=== PATIENT | female | born 1955 | race Caucasian/White ===

== ENCOUNTER 2023-04-27 08:38 | Observation (INO) | payer MEDICARE ==
[2023-04-27 09:14] LABS: #Monocytes 0.7 10x3/uL (0.0-1.1); #Neutrophils 8.1 10x3/uL (1.5-8.4); %Basophils 0.4 % (0.0-2.0); %Eosinophils 0.4 % (0.0-6.0); %Lymphocytes 12.3 % (18.0-47.0); %Monocytes 6.6 % (0.0-10.0); %Neutrophils 79.9 % (40.0-75.0); Hematocrit 40.9 % (34.9-44.5); Hemoglobin 14.1 g/dL (12.0-15.5); Mean Corpuscular HGB CONC 34.5 g/dL (32.0-36.0); Mean Corpuscular Hemoglobin 31.4 pg (27.0-33.0); Mean Corpuscular Volume 91.1 fl (81.6-98.3); Mean Platelet Volume 10.3 fl (7.4-10.4); Platelet Count 324 10x3/uL (150-450); RBC Distribution Width 14.4 % (11.5-14.5); Red Blood Cell (RBC) Count 4.49 10x6/uL (3.90-5.03); White Blood Cell (WBC) Count 10.2 10x3/uL (3.5-10.5)
[2023-04-27] MEDS ORDERED: Morphine 4 MG/ML VIAL ONE (09:26)
[2023-04-27] MEDS ORDERED: Ondansetron PF 4 MG/2 ML Vial ONE ×2 (09:26→14:23)
[2023-04-27 09:34] LABS: ALT (SGPT) 28 U/L (8-55); AST (SGOT) 32 U/L (5-34); Albumin 4.1 g/dL (3.4-4.8); Alkaline Phosphatase 77 U/L (40-110); Anion Gap 16 mmol/L (10-20); BUN (Urea Nitrogen) 30 mg/dL (9.8-20.1); Bilirubin, Total 0.8 mg/dL (0.2-1.2); Calc. Creatinine Clearance 0 mL/min (70-130); Calcium 10.1 mg/dL (7.8-10.44); Carbon Dioxide 25 mmol/L (23-31); Chloride 104 mmol/L (98-107); Estimated GFR 48; Globulin 2.6 g/dL (2.4-3.5); Glucose 124 mg/dL (80-115); Lipase 4 U/L (8-78); Protein, Total 6.7 g/dL (5.8-8.1); Sodium 141 mmol/L (136-145)
[2023-04-27] MEDS ORDERED: Lorazepam 2 MG/ML VIAL ONE (09:34)
[2023-04-27 09:39] LABS: Troponin I Less than 0.010 ng/mL (< 0.028)
[2023-04-27] MEDS ORDERED: fentaNYL 50 mcg/mL 1 mL Vial ONE ×2 (10:28→14:24)
[2023-04-27] MEDS ORDERED: Iopamidol 300 61% 100 ML VIAL FS ONE (11:44)
[2023-04-27] MEDS ORDERED: Morphine 2 MG/ML VIAL SLOW IVP PRN (11:58)
[2023-04-27] MEDS ORDERED: Promethazine HCl 25 MG/ML VIAL IM PRN (11:58)
[2023-04-27] MEDS ORDERED: hydrALAZINE 20 MG/ML VIAL SLOW IVP PRN (11:58)
[2023-04-27] MEDS ORDERED: Ipratropium/Albuterol 3 ML NEB NEB PRN (11:58)
[2023-04-27] MEDS ORDERED: HYDROcodone/Acetaminophen 10/325 mg Tablet PO PRN (11:58)
[2023-04-27] MEDS ORDERED: Calcium Carbonate 500 MG ChewTAB PO PRN (11:58)
[2023-04-27] MEDS ORDERED: Mag-Al 1200 mg/1200 mg/30 ML UDCUP PO PRN (11:58)
[2023-04-27] MEDS ORDERED: Dextrose 5% in Water 1,000 ML IV PRN (11:58)
[2023-04-27] MEDS ORDERED: Ondansetron PF 4 MG/2 ML Vial IVP PRN (11:58)
[2023-04-27] MEDS ORDERED: Glucagon 1 MG/ML KIT IM PRN (11:58)
[2023-04-27] MEDS ORDERED: Dextrose 50% Abboject 50 ML SYRINGE SLOW IVP PRN (11:58)
[2023-04-27] MEDS ORDERED: EPINEPHrine 1 MG/ML VIAL ONE (14:13)
[2023-04-27] MEDS ORDERED: Bupivacaine 0.25% HCL 30 ML VIAL ONE (14:13)
[2023-04-27] MEDS ORDERED: ceFOXitin 1 GM VIAL ONE (14:21)
[2023-04-27] MEDS ORDERED: Rocuronium Bromide 10 MG/ML (10ML VIAL) ONE (14:23)
[2023-04-27] MEDS ORDERED: Dexamethasone 20 MG/5 ML VIAL ONE (14:23)
[2023-04-27] MEDS ORDERED: PROPOFOL 20 ML ONE (14:23)
[2023-04-27] MEDS ORDERED: Lidocaine 1% PF 5 ML VIAL ONE (14:23)
[2023-04-27] MEDS ORDERED: Glycopyrrolate 0.2 MG/ML 5 ML SYRINGE ONE (14:53)
[2023-04-27] MEDS ORDERED: ePHEDrine Sulfate 50 MG/10 ML VIAL ONE (14:54)
[2023-04-27] MEDS ORDERED: PHENYLEPHRINE-NS 100 MCG/ML 10 ML SYRINGE ONE (15:10)
[2023-04-27] MEDS ORDERED: Metoclopramide HCl 10 MG (2 mL) VIAL ONE (15:28)
[2023-04-27] MEDS: Ketorolac Tromethamine 30 MG (1 mL) VIAL IVP SCH (17:53)
[2023-04-27] MEDS: D5 1/2 NS w/20 mEq KCL 1,000 ML IV SCH (17:53)
[2023-04-27 19:28] VITALS: BMI 19.2
[2023-04-27] MEDS: Famotidine/PF 20 mg/2ml Vial SLOW IVP SCH (22:08)
[2023-04-27] MEDS: Escitalopram Oxalate 20 mg Tablet PO SCH (23:45)
[2023-04-27] MEDS: QUEtiapine 25 MG TAB PO SCH (23:45)
[2023-04-28] MEDS: Lorazepam 0.5 MG TAB PO SCH (00:07)
[2023-04-28] MEDS: Enoxaparin 40 MG (0.4 mL) SYRINGE SC SCH (10:21)
[2023-04-28 13:24] VITALS: TEMP 98.1
[2023-04-28 16:18] VITALS: BP 103/62
[2023-04-28] MEDS ORDERED: QUEtiapine 25 MG TAB PO SCH (21:00)
[2023-04-28] MEDS ORDERED: Escitalopram Oxalate 20 mg Tablet PO SCH (21:00)
[2023-04-28] MEDS ORDERED: Famotidine/PF 20 mg/2ml Vial SLOW IVP SCH (21:00)
[2023-04-28] MEDS ORDERED: Lorazepam 0.5 MG TAB PO SCH (21:00)
== END 2023-04-28 20:45 | disposition home or self-care (01) ==
LOC: CSHERS 08:38 → CSHTELE 12:09
PROVIDERS: ADMIT Surgery; ATTEND Surgery
PROC: 0DB84ZZ Excision of Small Intestine, Percutaneous Endoscopic Approach (ICD-10-PCS; principal; 2023-04-27)
PROC: 0YU54JZ Supplement Right Inguinal Region with Synthetic Substitute, Percutaneous Endoscopic Approach (ICD-10-PCS; 2023-04-27)
DX: K40.30 Unilateral inguinal hernia, with obstruction, without gangrene, not specified as recurrent (principal); K55.019 Acute (reversible) ischemia of small intestine, extent unspecified; F41.9 Anxiety disorder, unspecified; J44.9 Chronic obstructive pulmonary disease, unspecified; Z90.710 Acquired absence of both cervix and uterus; Z79.899 Other long term (current) drug therapy
CPT/HCPCS: 44202; 49650; 71045; 74177; 80053; 83605; 83690; 84484; 85025; 93005; 94760 ×2; 96361; 96372; 96374; 96375 ×2; 96376; 99285; C1781; G0378 ×3; J0171; J3010; 88307; J0665; J0694; J1100; J1650; J1885; J2060; J2270; J2405; J2704; J2765; J3480; Q9967; S0028

== ENCOUNTER 2023-05-10 18:45 | Inpatient (IN) | payer MEDICARE ==
[2023-05-10 19:39] LABS: #Basophils 0.05 10x3/uL (0.0-0.2); #Eosinphils 0.22 10x3/uL (0.0-0.5); #Monocytes 0.44 10x3/uL (0.0-1.1); #Neutrophils 3.09 10x3/uL (1.5-8.4); %Basophils 0.8 % (0.0-2.0); %Eosinophils 3.4 % (0.0-6.0); %Lymphocytes 40.3 % (18.0-47.0); %Monocytes 6.9 % (0.0-10.0); %Neutrophils 48.4 % (40.0-75.0); Hematocrit 37.6 % (34.9-44.5); Hemoglobin 12.7 g/dL (12.0-15.5); Mean Corpuscular HGB CONC 33.8 g/dL (32.0-36.0); Mean Corpuscular Hemoglobin 31.1 pg (27.0-33.0); Mean Corpuscular Volume 92.2 fl (81.6-98.3); Mean Platelet Volume 9.1 fl (7.4-10.4); Platelet Count 393 10x3/uL (150-450); RBC Distribution Width 14.1 % (11.5-14.5); Red Blood Cell (RBC) Count 4.08 10x6/uL (3.90-5.03); White Blood Cell (WBC) Count 6.4 10x3/uL (3.5-10.5)
[2023-05-10 19:57] LABS: ALT (SGPT) 12 U/L (8-55); AST (SGOT) 21 U/L (5-34); Albumin 3.4 g/dL (3.4-4.8); Alkaline Phosphatase 74 U/L (40-110); Anion Gap 13 mmol/L (10-20); BUN (Urea Nitrogen) 15 mg/dL (9.8-20.1); Bilirubin, Total 0.5 mg/dL (0.2-1.2); Calc. Creatinine Clearance 0 mL/min (70-130); Carbon Dioxide 26 mmol/L (23-31); Chloride 106 mmol/L (98-107); Estimated GFR 80; Globulin 2.3 g/dL (2.4-3.5); Glucose 71 mg/dL (80-115); Lipase 7 U/L (8-78); Magnesium 2.3 mg/dL (1.6-2.6); Protein, Total 5.7 g/dL (5.8-8.1); Sodium 141 mmol/L (136-145)
[2023-05-10 19:59] LABS: Troponin I Less than 0.010 ng/mL (< 0.028)
[2023-05-10] MEDS ORDERED: Lorazepam 2 MG/ML VIAL ONE (21:12)
[2023-05-10 21:23] LABS: Bilirubin Neg (Negative); Blood, Urine Negative (Negative); Clarity Clear (Clear); Glucose, Urine (Dipstick) Normal (Negative); Ketone, Urine 15 mg/dL (Negative); Leukocyte Negative (Negative); Nitrite Negative (Negative); Protein, Urine (Dipstick) Negative (Neg-Trace)
[2023-05-10 21:29] LABS: Bacteria/HPF None Seen HPF (None Seen); CAUTI Indications for Culture Alt mental st,lethar; RBC/HPF None Seen HPF (0-3); Squamous Epithelial 0-3 HPF (0-3); Urine Culture Reflex No No; WBC/HPF None Seen HPF (0-3)
[2023-05-10] MEDS ORDERED: Haloperidol Lactate 5 MG/ML VIAL ONE (22:10)
[2023-05-10] MEDS ORDERED: D5 1/2 NS w/20 mEq KCL 1,000 ML ONE (22:33)
[2023-05-11] MEDS ORDERED: Calcium Carbonate 500 MG ChewTAB PO PRN (00:06)
[2023-05-11] MEDS ORDERED: Senokot S 8.6-50 MG TAB PO PRN (00:06)
[2023-05-11] MEDS ORDERED: Ondansetron PF 4 MG/2 ML Vial IVP PRN (00:06)
[2023-05-11] MEDS ORDERED: clonazePAM 0.5 MG TAB PO PRN (00:17)
[2023-05-11 02:05] VITALS: BMI 19.5
[2023-05-11] MEDS: D5 1/2 NS w/20 mEq KCL 1,000 ML IV SCH (02:21)
[2023-05-11] MEDS: Dextrose 50% Abboject 50 ML SYRINGE SLOW IVP SCH (02:21)
[2023-05-11] MEDS: Dextrose 5%-Lactated Ringers 1,000 ML IV SCH (02:27)
[2023-05-11 04:35] LABS: Anion Gap 15 mmol/L (10-20); BUN (Urea Nitrogen) 14 mg/dL (9.8-20.1); CK (CPK) 64 U/L (29-168); Calc. Creatinine Clearance 61 mL/min (70-130); Calcium 9.2 mg/dL (7.8-10.44); Carbon Dioxide 24 mmol/L (23-31); Chloride 107 mmol/L (98-107); Estimated GFR 78; Glucose 104 mg/dL (80-115); Potassium 3.7 mmol/L (3.5-5.1); Sodium 142 mmol/L (136-145)
[2023-05-11 04:55] LABS: Syphilis Antibody Nonreactive (Nonreactive)
[2023-05-11 04:56] LABS: HIV (1/2) Antibody/Antigen Non-Reactive (NonReactive); HIV 1/2 INDEX 0.07 S/CO (<1.00)
[2023-05-11] MEDS ORDERED: Escitalopram Oxalate 10 mg Tablet PO SCH (09:00)
[2023-05-11 13:03] LABS: Amphetamine Not Detected (NotDetected); Barbiturates Screen Not Detected (NotDetected); Benzodiazepine Screen Detected (NotDetected); Cocaine Metabolite Screen Not Detected (NotDetected); Methadone Not Detected (NotDetected); Methamphetamine Not Detected (NotDetected); Opiate Screen Not Detected (NotDetected); Oxycodone Screen Not Detected (NotDetected); Phencyclidine (PCP) Not Detected (NotDetected); THC/Cannabinoid Screen Not Detected (NotDetected); Tricyclic Screen Not Detected (NotDetected)
[2023-05-11] MEDS: clonazePAM 0.5 MG TAB PO SCH (15:01)
[2023-05-11] MEDS: Enoxaparin 40 MG (0.4 mL) SYRINGE SC SCH (15:01)
[2023-05-11] MEDS: Divalproex Sodium 250 MG (DR) TAB PO SCH (15:01)
[2023-05-11] MEDS: Famotidine/PF 20 mg/2ml Vial SLOW IVP SCH (15:02)
[2023-05-11] MEDS: Escitalopram Oxalate 20 mg Tablet PO SCH (15:02)
[2023-05-11] MEDS: risperiDONE 0.5 MG TAB PO SCH (15:02)
[2023-05-11] MEDS ORDERED: Dextrose 5% in Water 1,000 ML IV PRN (20:45)
[2023-05-11] MEDS ORDERED: Dextrose 50% Abboject 50 ML SYRINGE SLOW IVP PRN (20:45)
[2023-05-11] MEDS ORDERED: Glucagon 1 MG/ML KIT IM PRN (20:45)
[2023-05-11] MEDS: Acetaminophen 325 MG TAB PO PRN (21:56)
[2023-05-11] MEDS: Divalproex Sodium 125 mg Sprinkle Capsule PO SCH (21:57)
[2023-05-12] MEDS ORDERED: Divalproex Sodium 250 MG ER.TAB PO SCH (21:00)
[2023-05-12] MEDS: Divalproex Sodium 250 MG (DR) TAB PO SCH (22:00)
[2023-05-13] MEDS: clonazePAM 0.5 MG TAB PO PRN (22:03)
[2023-05-15 06:35] VITALS: TEMP 97.6
[2023-05-15 10:31] VITALS: BP 104/61
== END 2023-05-15 10:54 | DRG 884 ==
LOC: CSHERS 18:45 → INTOOBSV 05-11 02:01 → CSHTELE 05-11 02:01 → OBSVTOIN 05-12 11:47
PROVIDERS: ADMIT Student in an Organized Health Care Education/Training Program; ATTEND Internal Medicine
PROC: 4A00X4Z Measurement of Central Nervous Electrical Activity, External Approach (ICD-10-PCS; principal; 2023-05-11)
DX: F03.90 Unspecified dementia, unspecified severity, without behavioral disturbance, psychotic disturbance, mood disturbance, and anxiety (principal); G93.41 Metabolic encephalopathy; F23 Brief psychotic disorder; G31.89 Other specified degenerative diseases of nervous system; F32.A Depression, unspecified; F41.9 Anxiety disorder, unspecified; E16.2 Hypoglycemia, unspecified; N18.2 Chronic kidney disease, stage 2 (mild); R53.81 Other malaise; Z79.899 Other long term (current) drug therapy; Z87.891 Personal history of nicotine dependence; Z90.710 Acquired absence of both cervix and uterus
CPT/HCPCS: 36415; 36416; 51701; 70450; 70551; 80048; 80053; 80306; 81001; 82550; 82607; 82672; 83605; 83690; 83735; 84443; 84484; 85025; 86780; 87389; 93005; 95816; 95819; 96361; 96372; 96374; 96375; 96376; G0378; J1630; J1650; J2060; J3480; S0028

== ENCOUNTER 2023-08-16 15:03 | Emergency (ER) | payer MEDICARE, OTHER | END 2023-08-16 18:40 | disposition home or self-care (01) | LOC: CSHERS 15:03 | DX: R42 Dizziness and giddiness (principal); N39.0 Urinary tract infection, site not specified | CPT/HCPCS: 70450; 71045; 80053; 81001; 84484; 85025; 87086; 93005; J0696; 96374 ==

== ENCOUNTER 2023-09-07 15:04 | Emergency (ER) | payer MEDICARE, OTHER ==
[2023-09-07 17:08] LABS: #Basophils 0.03 10x3/uL (0.0-0.2); #Eosinphils 0.07 10x3/uL (0.0-0.5); #Monocytes 0.35 10x3/uL (0.0-1.1); #Neutrophils 1.82 10x3/uL (1.5-8.4); %Basophils 0.7 % (0.0-2.0); %Eosinophils 1.5 % (0.0-6.0); %Lymphocytes 50.2 % (18.0-47.0); %Monocytes 7.7 % (0.0-10.0); %Neutrophils 39.9 % (40.0-75.0); Hematocrit 41.5 % (34.9-44.5); Mean Corpuscular HGB CONC 33.7 g/dL (32.0-36.0); Mean Corpuscular Hemoglobin 32.5 pg (27.0-33.0); Mean Corpuscular Volume 96.3 fL (81.6-98.3); Mean Platelet Volume 10.6 fL (7.4-10.4); Platelet Count 206 10x3/uL (150-450); RBC Distribution Width 13.1 % (11.5-14.5); Red Blood Cell (RBC) Count 4.31 10x6/uL (3.90-5.03); White Blood Cell (WBC) Count 4.6 10x3/uL (3.5-10.5)
[2023-09-07 17:26] LABS: ALT (SGPT) 15 U/L (8-55); AST (SGOT) 21 U/L (5-34); Albumin 3.5 g/dL (3.4-4.8); Alkaline Phosphatase 54 U/L (40-110); Anion Gap 12 mmol/L (10-20); BUN (Urea Nitrogen) 27 mg/dL (9.8-20.1); Bilirubin, Total 0.3 mg/dL (0.2-1.2); Calc. Creatinine Clearance 0 mL/min (70-130); Calcium 9.9 mg/dL (7.8-10.44); Carbon Dioxide 28 mmol/L (23-31); Chloride 104 mmol/L (98-107); Estimated GFR 67; Glucose 99 mg/dL (80-115); Protein, Total 6.5 g/dL (5.8-8.1); Sodium 140 mmol/L (136-145)
[2023-09-07 17:27] LABS: Bilirubin Neg (Negative); Blood, Urine 10 (Negative); Clarity Clear (Clear); Glucose, Urine (Dipstick) Normal (Negative); Ketone, Urine Negative (Negative); Leukocyte 500 (Negative); Nitrite Negative (Negative); Protein, Urine (Dipstick) 15 mg/dl (Neg-Trace); Urobilinogen Normal mg/dL (Less than 2)
[2023-09-07 17:46] LABS: Bacteria/HPF 2+ HPF (None Seen); CAUTI Indications for Culture Alt mental st,lethar; Mucous/LPF 1+ LPF (<2+); RBC/HPF 0-3 HPF (0-3); Squamous Epithelial 0-3 HPF (0-3); Transitional Epithelial 0-3 HPF (None Seen); Urine Culture Reflex Yes Yes; WBC/HPF 21-50 HPF (0-3)
[2023-09-07] MEDS ORDERED: cefTRIAXone (ROCEPHIN) 2 GM VIAL ONE (18:03)
== END 2023-09-07 19:22 | disposition home or self-care (01) ==
LOC: CSHERS 15:04
DX: R53.1 Weakness (principal)
CPT/HCPCS: 72072; 72100; 80053; 81001; 83735; 85025; 87086; 93005; J0696; 96374

== ENCOUNTER 2023-11-04 12:45 | Inpatient (IN) | payer MEDICARE, OTHER ==
[~2023-11-04 12:45] MED LIST: Iopamidol 300 61% 100 ML VIAL FS ONE
[2023-11-04] MEDS ORDERED: Acetaminophen 500 MG TAB ONE (14:58)
[2023-11-04] MEDS ORDERED: Lidocaine 4% Patch ONE (15:45)
[2023-11-04 16:08] LABS: #Basophils 0.03 10x3/uL (0.0-0.2); #Eosinphils 0.24 10x3/uL (0.0-0.5); #Monocytes 0.57 10x3/uL (0.0-1.1); %Basophils 0.6 % (0.0-2.0); %Eosinophils 4.7 % (0.0-6.0); %Lymphocytes 47.9 % (18.0-47.0); %Monocytes 11.2 % (0.0-10.0); %Neutrophils 35.4 % (40.0-75.0); Hematocrit 30.6 % (34.9-44.5); Hemoglobin 10.1 g/dL (12.0-15.5); Mean Corpuscular Hemoglobin 31.9 pg (27.0-33.0); Mean Corpuscular Volume 96.5 fL (81.6-98.3); Mean Platelet Volume 9.3 fL (7.4-10.4); Platelet Count 257 10x3/uL (150-450); RBC Distribution Width 14.4 % (11.5-14.5); Red Blood Cell (RBC) Count 3.17 10x6/uL (3.90-5.03); White Blood Cell (WBC) Count 5.1 10x3/uL (3.5-10.5)
[2023-11-04 16:25] LABS: Anion Gap 11 mmol/L (10-20); BUN (Urea Nitrogen) 23 mg/dL (9.8-20.1); Calc. Creatinine Clearance 0 mL/min (70-130); Calcium 9.5 mg/dL (7.8-10.44); Carbon Dioxide 26 mmol/L (23-31); Chloride 108 mmol/L (98-107); Estimated GFR 66; Glucose 84 mg/dL (80-115); PTT 26.5 sec (22.0-33.0); Potassium 4.2 mmol/L (3.5-5.1); Prothrombin Time 10.9 sec (9.5-12.1); Sodium 141 mmol/L (136-145)
[2023-11-04] MEDS ORDERED: clonazePAM 0.5 MG TAB ONE ×3 (16:35→22:26)
[2023-11-04 20:19] LABS: Bilirubin Neg (Negative); Blood, Urine Negative (Negative); Clarity Clear (Clear); Glucose, Urine (Dipstick) Normal (Negative); Ketone, Urine Negative (Negative); Leukocyte Negative (Negative); Nitrite Positive (Negative); Protein, Urine (Dipstick) 15 mg/dl (Neg-Trace)
[2023-11-04] MEDS ORDERED: Mineral Oil ENEMA ONE (20:21)
[2023-11-04 20:27] LABS: CAUTI Indications for Culture Alt mental st,lethar; RBC/HPF 0-3 HPF (0-3); Squamous Epithelial None Seen HPF (0-3); WBC/HPF 0-3 HPF (0-3)
[2023-11-04 20:28] LABS: Bacteria/HPF Rare-Few HPF (None Seen)
[2023-11-04 20:29] LABS: Urine Culture Reflex No No
[2023-11-04] MEDS ORDERED: Calcium Carbonate 500 MG ChewTAB PO PRN (20:37)
[2023-11-04] MEDS ORDERED: Guaifenesin DM 100-10/5 ML UDCUP PO PRN (20:37)
[2023-11-04] MEDS ORDERED: Ondansetron PF 4 MG/2 ML Vial IVP PRN (20:37)
[2023-11-04] MEDS ORDERED: Bisacodyl 10 MG SUPP PR PRN (20:43)
[2023-11-04] MEDS ORDERED: QUEtiapine 25 MG TAB ONE (22:25)
[2023-11-04] MEDS ORDERED: traZODone HCl 50 MG TAB ONE (22:25)
[2023-11-04 23:03] VITALS: BMI 18.8
[2023-11-04] MEDS: clonazePAM 0.5 MG TAB PO PRN (23:04)
[2023-11-04] MEDS: QUEtiapine 25 MG TAB PO SCH (23:04)
[2023-11-04] MEDS: traZODone HCl 50 MG TAB PO SCH (23:04)
[2023-11-04] MEDS ORDERED: cefTRIAXone (ROCEPHIN) 1 GM VIAL ONE (23:17)
[2023-11-04] MEDS ORDERED: Divalproex Sodium 250 MG (DR) TAB ONE (23:17)
[2023-11-04] MEDS: Divalproex Sodium 250 MG (DR) TAB PO SCH (23:30)
[2023-11-04] MEDS: cefTRIAXone\\ROCEPHIN 1 GM in Sodium Chloride 0.9% 100 ML IVPB SCH (23:31)
[2023-11-04] MEDS: Senokot S 8.6-50 MG TAB PO SCH (23:36)
[2023-11-04] MEDS: Lactulose 20 GM (30 mL) UDCUP PO SCH (23:36)
[2023-11-04] MEDS: Bisacodyl 10 MG SUPP PR SCH (23:36)
[2023-11-05] MEDS: Lactated Ringer's 1,000 ML IV SCH (00:01)
[2023-11-05] MEDS ORDERED: traMADol HCl 50 MG TAB ONE (02:27)
[2023-11-05] MEDS ORDERED: Acetaminophen 325 MG TAB ONE (02:27)
[2023-11-05] MEDS: traMADol HCl 50 MG TAB PO PRN (02:36)
[2023-11-05] MEDS: Acetaminophen 650 MG Suppository PR PRN (02:36)
[2023-11-05] MEDS ORDERED: Sterile Water 10 ML ONE (03:12)
[2023-11-05] MEDS ORDERED: Ziprasidone 20 MG VIAL ONE (03:12)
[2023-11-05 04:33] LABS: #Basophils 0.03 10x3/uL (0.0-0.2); #Eosinphils 0.25 10x3/uL (0.0-0.5); #Monocytes 0.55 10x3/uL (0.0-1.1); #Neutrophils 1.82 10x3/uL (1.5-8.4); %Basophils 0.7 % (0.0-2.0); %Eosinophils 5.6 % (0.0-6.0); %Lymphocytes 40.1 % (18.0-47.0); %Monocytes 12.4 % (0.0-10.0); Hematocrit 33.8 % (34.9-44.5); Hemoglobin 11.4 g/dL (12.0-15.5); Mean Corpuscular HGB CONC 33.7 g/dL (32.0-36.0); Mean Corpuscular Hemoglobin 32.7 pg (27.0-33.0); Mean Corpuscular Volume 96.8 fL (81.6-98.3); Mean Platelet Volume 9.5 fL (7.4-10.4); Platelet Count 275 10x3/uL (150-450); RBC Distribution Width 14.3 % (11.5-14.5); Red Blood Cell (RBC) Count 3.49 10x6/uL (3.90-5.03); White Blood Cell (WBC) Count 4.4 10x3/uL (3.5-10.5)
[2023-11-05 04:37] LABS: Anion Gap 16 mmol/L (10-20); BUN (Urea Nitrogen) 17 mg/dL (9.8-20.1); Calc. Creatinine Clearance 55 mL/min (70-130); Calcium 8.9 mg/dL (7.8-10.44); Carbon Dioxide 19 mmol/L (23-31); Chloride 109 mmol/L (98-107); Estimated GFR 74; Glucose 73 mg/dL (80-115); Potassium 4.3 mmol/L (3.5-5.1); Sodium 140 mmol/L (136-145)
[2023-11-05] MEDS ORDERED: Pantoprazole DR 40 MG TAB ONE (07:39)
[2023-11-05] MEDS ORDERED: Divalproex Sodium 250 MG (DR) TAB ONE (07:41)
[2023-11-05] MEDS: Divalproex Sodium 250 MG (DR) TAB PO SCH (08:42)
[2023-11-05] MEDS: Escitalopram Oxalate 20 mg Tablet PO SCH (08:42)
[2023-11-05] MEDS: Multivit, Therapeutic 1 TAB PO SCH (08:43)
[2023-11-05] MEDS: Pantoprazole DR 40 MG TAB PO SCH (08:43)
[2023-11-05] MEDS: QUEtiapine 25 MG TAB PO SCH (20:53)
[2023-11-05] MEDS: Enoxaparin 40 MG (0.4 mL) SYRINGE SC SCH (20:53)
[2023-11-05] MEDS: traZODone HCl 50 MG TAB PO SCH (20:54)
[2023-11-06 04:29] LABS: #Basophils 0.03 10x3/uL (0.0-0.2); #Eosinphils 0.26 10x3/uL (0.0-0.5); #Monocytes 0.64 10x3/uL (0.0-1.1); #Neutrophils 1.49 10x3/uL (1.5-8.4); %Basophils 0.7 % (0.0-2.0); %Eosinophils 6.2 % (0.0-6.0); %Lymphocytes 42.1 % (18.0-47.0); %Monocytes 15.3 % (0.0-10.0); %Neutrophils 35.7 % (40.0-75.0); Hemoglobin 10.8 g/dL (12.0-15.5); Mean Corpuscular HGB CONC 33.8 g/dL (32.0-36.0); Mean Corpuscular Hemoglobin 32.8 pg (27.0-33.0); Mean Corpuscular Volume 97.3 fL (81.6-98.3); Mean Platelet Volume 9.2 fL (7.4-10.4); Platelet Count 262 10x3/uL (150-450); RBC Distribution Width 14.4 % (11.5-14.5); Red Blood Cell (RBC) Count 3.29 10x6/uL (3.90-5.03); White Blood Cell (WBC) Count 4.2 10x3/uL (3.5-10.5)
[2023-11-06 04:41] LABS: Anion Gap 14 mmol/L (10-20); BUN (Urea Nitrogen) 14 mg/dL (9.8-20.1); Calc. Creatinine Clearance 59 mL/min (70-130); Calcium 8.7 mg/dL (7.8-10.44); Carbon Dioxide 21 mmol/L (23-31); Chloride 112 mmol/L (98-107); Estimated GFR 81; Glucose 92 mg/dL (80-115); Potassium 4.2 mmol/L (3.5-5.1); Sodium 143 mmol/L (136-145)
[2023-11-06] MEDS: Polyethylene Glycol 3350 17 GM Packet PO SCH (08:18)
[2023-11-08] MEDS: QUEtiapine 25 MG TAB PO SCH ×2 (11:31→20:52)
[2023-11-09] MEDS: Folic Acid 1 MG TAB PO SCH (08:40)
[2023-11-09 12:48] VITALS: BP 112/56; TEMP 98.3
== END 2023-11-09 16:21 | DRG 690 ==
LOC: CSHERS 12:45 → CSHERHOLD 20:12 → CSHTELE 11-05 13:02 → OBSVTOIN 11-05 15:56 → CSHTELE 11-07 12:51
PROVIDERS: ADMIT Student in an Organized Health Care Education/Training Program; ATTEND Family Medicine
DX: N39.0 Urinary tract infection, site not specified (principal); F33.9 Major depressive disorder, recurrent, unspecified; K59.00 Constipation, unspecified; F41.9 Anxiety disorder, unspecified; I71.43 Infrarenal abdominal aortic aneurysm, without rupture; D64.9 Anemia, unspecified; Z87.891 Personal history of nicotine dependence; Z90.710 Acquired absence of both cervix and uterus; Z98.890 Other specified postprocedural states; Z79.899 Other long term (current) drug therapy; F03.90 Unspecified dementia, unspecified severity, without behavioral disturbance, psychotic disturbance, mood disturbance, and anxiety; K52.89 Other specified noninfective gastroenteritis and colitis
CPT/HCPCS: 36415; 36416; 70450; 74177; 80048; 81001; 85025; 85610; 85730; 87086; 96365; 96372; G0378; J0696; J1650; J3486; J7120; Q9967

== ENCOUNTER 2023-11-28 02:45 | Observation (INO) | payer OTHER ==
[2023-11-28] MEDS ORDERED: Haloperidol Lactate 5 MG/ML VIAL ONE (03:43)
[2023-11-28] MEDS ORDERED: Ziprasidone 20 MG CAP ONE (04:13)
[2023-11-28 05:21] LABS: #Basophils 0.03 10x3/uL (0.0-0.2); #Eosinophils 0.07 10x3/uL (0.0-0.5); #Monocytes 0.81 10x3/uL (0.0-1.1); #Neutrophils 5.12 10x3/uL (1.5-8.4); %Basophils 0.4 % (0.0-2.0); %Eosinophils 0.9 % (0.0-6.0); %Lymphocytes 24.7 % (18.0-47.0); %Monocytes 10.1 % (0.0-10.0); %Neutrophils 63.7 % (40.0-75.0); Hematocrit 32.5 % (34.9-44.5); Hemoglobin 10.6 g/dL (12.0-15.5); Mean Corpuscular HGB CONC 32.6 g/dL (32.0-36.0); Mean Corpuscular Hemoglobin 31.7 pg (27.0-33.0); Mean Corpuscular Volume 97.3 fL (81.6-98.3); Mean Platelet Volume 9.3 fL (7.4-10.4); Platelet Count 270 10x3/uL (150-450); Red Blood Cell (RBC) Count 3.34 10x6/uL (3.90-5.03)
[2023-11-28 05:38] LABS: ALT (SGPT) 20 U/L (8-55); AST (SGOT) 38 U/L (5-34); Albumin 3.1 g/dL (3.4-4.8); Alkaline Phosphatase 45 U/L (40-110); Anion Gap 12 mmol/L (10-20); BUN (Urea Nitrogen) 29 mg/dL (9.8-20.1); Bilirubin, Total 0.5 mg/dL (0.2-1.2); Calc. Creatinine Clearance 0 mL/min (70-130); Calcium 9.4 mg/dL (7.8-10.44); Carbon Dioxide 24 mmol/L (23-31); Chloride 109 mmol/L (98-107); Estimated GFR 66; Globulin 3.5 g/dL (2.4-3.5); Glucose 97 mg/dL (80-115); Potassium 3.9 mmol/L (3.5-5.1); Protein, Total 6.6 g/dL (5.8-8.1); Sodium 141 mmol/L (136-145)
[2023-11-28] MEDS ORDERED: Ondansetron ODT 4 MG TAB PO PRN (07:15)
[2023-11-28] MEDS ORDERED: Acetaminophen 325 MG TAB PO PRN (07:15)
[2023-11-28] MEDS: QUEtiapine 25 MG TAB PO SCH ×2 (10:00→21:01)
[2023-11-28] MEDS: Escitalopram Oxalate 20 mg Tablet PO SCH (10:00)
[2023-11-28] MEDS: Divalproex Sodium DR 500 MG TAB PO SCH (10:00)
[2023-11-28] MEDS: Megestrol Acetate 400 MG/10 ML UDCUP PO SCH (10:00)
[2023-11-28] MEDS ORDERED: QUEtiapine 25 MG TAB ONE (11:07)
[2023-11-28] MEDS ORDERED: Divalproex Sodium DR 500 MG TAB ONE (11:07)
[2023-11-28] MEDS: Folic Acid 1 MG TAB PO SCH (12:00)
[2023-11-28] MEDS ORDERED: OLANZapine 2.5 MG TAB ONE ×2 (12:38→14:11)
[2023-11-28] MEDS ORDERED: Folic Acid 1 MG TAB ONE (12:40)
[2023-11-28] MEDS ORDERED: Lorazepam 1 MG TAB ONE (12:40)
[2023-11-28] MEDS: Polyethylene Glycol 3350 17 GM Packet PO SCH (13:39)
[2023-11-28] MEDS: OLANZapine 10 MG VIAL IM SCH (14:30)
[2023-11-28] MEDS: Senokot S 8.6-50 MG TAB PO SCH (15:34)
[2023-11-28] MEDS: clonazePAM 0.5 MG TAB PO SCH (21:01)
[2023-11-29] MEDS: traZODone HCl 50 MG TAB PO PRN (01:18)
[2023-11-29 10:03] VITALS: BMI 24.5
[2023-11-29 12:22] VITALS: BMI 19.0
[2023-11-29] MEDS: OLANZapine 2.5 MG TAB PO SCH (16:02)
[2023-11-29 16:06] VITALS: BP 91/53; TEMP 98
== END 2023-11-29 17:53 ==
LOC: CSHERS 02:45 → CSHERHOLD 07:17 → CSHTELE 15:36
PROVIDERS: ADMIT Internal Medicine; ATTEND Internal Medicine
DX: F03.C18 Unspecified dementia, severe, with other behavioral disturbance (principal); F03.C4 Unspecified dementia, severe, with anxiety; F03.C3 Unspecified dementia, severe, with mood disturbance; R62.7 Adult failure to thrive; Z90.710 Acquired absence of both cervix and uterus; Z98.890 Other specified postprocedural states; Z87.891 Personal history of nicotine dependence; Z79.899 Other long term (current) drug therapy
CPT/HCPCS: 80053; 85025; 96372; 99285; G0378 ×3; J1630; 36415